=== PATIENT | female | born 1945 | race Caucasian/White ===

== ENCOUNTER → 2016-06-19 | Outpatient (CLI) | payer MEDICARE, BC ==
--- NOTE | 2016-06-20 08:51 | RADRPT ---
PROCEDURE: XR right knee. CLINICAL INDICATION: Knee pain TECHNIQUE: AP weightbearing, PA weightbearing, lateral weightbearing and sunrise views are availab le for review. COMPARISON: None available FINDINGS: There is moderate osteoarthrosis involving the patellofemoral compartment and mild osteoarthrosis in volving the medial tibial femoral compartment and the lateral tibial femoral compartment. This is as sociated with joint space narrowing, subchondral sclerosis and osteophytosis. There are small calcif ied loose bodies in the anterior and posterior joint. There is otherwise normal mineralization, architecture and alignment. No fractures are identified. No osseous lesions are identified. The soft tissues are unremarkable. IMPRESSION: Moderate osteoarthrosis involving the patellofemoral compartment and mild osteoarthrosis involving t he lateral tibial femoral compartment and the medial tibial femoral compartment. Small calcified loose bodies in the anterior and posterior joint. RPTAT: HGDB .David Arzate MD, MD Date Time Electronically viewed and signed by .David Arzate MD, on 06/20/2016 08:51 .B/
== END | disposition home or self-care (01) ==
LOC: HKI 10:23
PROVIDERS: ATTEND Orthopaedic Surgery
DX: M17.11 Unilateral primary osteoarthritis, right knee (principal)
CPT/HCPCS: 73564; G0463

== ENCOUNTER → 2016-09-18 | Outpatient (CLI) | payer BC, MEDICARE ==
--- NOTE | 2016-09-18 14:01 | RADRPT ---
PROCEDURE: Limited x-ray of both lower extremities. CLINICAL INDICATION: Bilateral leg pain. TECHNIQUE: Single frontal view of both lower extremities was obtained from the hips to the calves. COMPARISON: None. FINDINGS: The hips are grossly normal. There are moderate degenerative changes of both knees with osteophytes and joint space narrowing, right worse than left. There is bilateral valgus deformity with right w orse than left. IMPRESSION: 1. Moderate degenerative changes of the knees, right worse than left. 2. Bilateral valgus deformity with right worse than left. RPTAT: QQ .Pablo Foley MD, MD Date Time Electronically viewed and signed by .Pablo Foley MD, on 09/18/2016 14:00 .R/
== END | disposition home or self-care (01) ==
LOC: HKI 09:57
PROVIDERS: ATTEND Orthopaedic Surgery
DX: Z01.818 Encounter for other preprocedural examination (principal); M17.11 Unilateral primary osteoarthritis, right knee; M21.062 Valgus deformity, not elsewhere classified, left knee; M21.061 Valgus deformity, not elsewhere classified, right knee; M79.605 Pain in left leg; M79.604 Pain in right leg
CPT/HCPCS: 77073; G0463

== ENCOUNTER 2016-09-26 07:39 | Inpatient (IN) | payer BC, MEDICARE ==
[~2016-09-26] VITALS: Ht 172.7 cm; Wt 80.3 kg
[2016-09-26] VITALS (12 sets, daily range): BP systolic 108–138; BP diastolic 54–70; PULSE 59–75; RESP 16–20; Ht 172.7 cm; Wt 80.3 kg
[~2016-09-26 07:39] MED LIST: BUPIVACAINE LIPOSOME/PF 266 MG/20 ML VIAL INFIL ONE; CEFAZOLIN 2GM/50 ML (PMX) 50 ML X1 BEFORE INCISION IVPB ONE; CELECOXIB 400 MG PO X1 DOSE PO ONE; LACTATED RINGER'S 1,000 ML IV SCH; PAIN COCKTAIL-CEFUROXIME IRR ONE; PREGABALIN 300 MG PO X1 PO ONE; TRANEXAMIC ACID 810 MG in SOD CHLORIDE 0.9% 100 ML IVPB ONE; TRANEXAMIC ACID 810 MG in SOD CHLORIDE 0.9% 91.9 ML IV ONE; oxyCODONE (CR) 10 MG TAB [oxyCONTIN] X1 DOSE PO ONE; traMADOL 50 MG TAB X 1 DOSE PO ONE
[2016-09-26] MEDS ORDERED: GLYCOPYRROLATE 0.4 MG INJ ONE (08:10)
[2016-09-26] MEDS ORDERED: MIDAZOLAM 1 MG/ML 2 ML INJ ONE (08:10)
[2016-09-26] MEDS ORDERED: NEOSTIGMINE 3 MG/3 ML SYRINGE ONE (08:10)
[2016-09-26] MEDS ORDERED: CEFAZOLIN 1 GM INJ ONE (08:10)
[2016-09-26] MEDS ORDERED: PROPOFOL 20 ML ONE (08:10)
[2016-09-26] MEDS ORDERED: ROCURONIUM 50 MG INJ ONE (08:10)
[2016-09-26] MEDS ORDERED: FENTAnyl 50 MCG/ML VIAL ONE (08:11)
[2016-09-26] MEDS ORDERED: ONDANSETRON 4 MG INJ ONE (08:11)
[2016-09-26] MEDS ORDERED: DEXAMETHASONE 4 MG/ML 1 ML INJ ONE (08:11)
[2016-09-26] MEDS ORDERED: ATOR20TA38 PO (08:14)
[2016-09-26] MEDS ORDERED: VALS160T20 PO (08:14)
[2016-09-26] MEDS ORDERED: ATEN1TAB3 PO (08:15)
--- NOTE | 2016-09-26 09:50 | HPN ---
Date/Time of Note Date/Time of Note DATE: 09/26/16 TIME: 09:50 Interval H&P Admission Note Pt. seen H&P reviewed: No system changes No changes from H&P on 09/24/16 by CINDY Mathis MD September 26, 2016 09:50
[2016-09-26] MEDS ORDERED: POLYMYXIN B 500000 UNIT INJ ONE ×2 (10:11→10:20)
[2016-09-26] MEDS ORDERED: VANCOMYCIN 1 GM INJ ONE (10:11)
[2016-09-26] MEDS ORDERED: EXPAREL NOTE (BUPIVICAINE LIPOSOMAL) XX SCH (10:30)
[2016-09-26] MEDS ORDERED: BACITRACIN 50000 UNITS INJ IRR ONE (11:28)
[2016-09-26] MEDS ORDERED: MIDAZOLAM 1 MG/ML 2 ML INJ IV PRN ×2 (11:30)
[2016-09-26] MEDS ORDERED: MEPERIDINE 25 MG INJ IV PRN ×2 (11:30)
[2016-09-26] MEDS ORDERED: ONDANSETRON 4 MG INJ IV PRN ×3 (11:30→13:00)
[2016-09-26] MEDS ORDERED: HYDROmorphONE (0.2 MG/ML) 10ML SYG IV PRN ×5 (11:30)
[2016-09-26] MEDS ORDERED: LABETALOL HCL 20MG INJ IV PRN ×2 (11:30)
[2016-09-26] MEDS ORDERED: hydrALAzine 20 MG INJ IV PRN ×2 (11:30)
[2016-09-26] MEDS ORDERED: DIPHENHYDRAMINE 50 MG INJ IV PRN ×2 (11:30)
[2016-09-26] MEDS ORDERED: TRIMETHOBENZAMIDE 100 MG/ML VIAL IM PRN ×2 (11:30)
[2016-09-26] MEDS ORDERED: EPHEDrine SULFATE 50 MG/5 ML SYG IV PRN ×2 (11:30)
[2016-09-26] MEDS ORDERED: FENTAnyl 50 MCG/ML VIAL IV PRN ×6 (11:30)
[2016-09-26] MEDS: LACTATED RINGER'S 1,000 ML IV SCH ×2 (12:54→20:54)
[2016-09-26] MEDS ORDERED: NA PHOSPHATE/BIPHOS 133 ML ENEMA PR PRN (13:00)
[2016-09-26] MEDS ORDERED: DIPHENHYDRAMINE 25 MG CAP PO PRN (13:00)
[2016-09-26] MEDS ORDERED: HYDROmorphONE 1 MG/ML SYG IV PRN (13:00)
[2016-09-26] MEDS ORDERED: MAGNESIUM HYDROXIDE 30ML CUP PO PRN (13:00)
[2016-09-26] MEDS ORDERED: NACL 0.9% 3 ML SYG IV SCH (13:00)
[2016-09-26] MEDS ORDERED: ASPIRIN (EC) 325 MG TAB PO ONE (13:00)
[2016-09-26] MEDS ORDERED: BISACODYL 10 MG SUPP PR PRN (13:00)
[2016-09-26] MEDS ORDERED: HYDROCODONE/APAP (5/325) TAB PO PRN (13:00)
--- NOTE | 2016-09-26 13:01 | PN ---
Date/Time of Note Date/Time of Note DATE: 09/26/16 TIME: 12:59 Assessment/Plan Lines/Catheters IV Catheter Type (from Nrsg): Peripheral IV Assessment/Plan Assessment/Plan Stable in PACU, s/p right TKA -continue Ancef until drains removed -pain meds as needed -ASA/SCDs for DVT prophylaxis -OOB with PT -check AM labs -monitor drain -d/c bird in AM XR of the right knee is pending at this time Subjective 24 Hr Interval Summary Stable in PACU. Denies pain. Moving all extremities. Exam/Review of Systems Vital Signs Vitals Vital Signs Date Time Temp Pulse Resp B/P Pulse Ox O2 Delivery O2 Flow Rate FiO2 09/26/16 07:50 98.0 61 16 128/69 99 Room Air Exam Free Text/Dictation Hemovac: minimal Dressing dry Incision clean, dry, and intact without redness or drainage Thigh soft 5/5 Quadriceps, Tibialis Anterior, EHL, Gastroc, Soleus, Peroneals Normal sensation Palpable DT/PT, CR <2 sec No distal edema JANETTE AUGUSTIN PA-C September 26, 2016 13:01
--- NOTE | 2016-09-26 13:09 | OPR ---
Date/Time of Note Date/Time of Note DATE: 09/26/16 TIME: 13:08 Operative Report Free Text/Dictation Dictation # [id number] Procedure Date: September 26, 2016 Preoperative Diagnosis Right Knee OA Postoperative Diagnosis Same Operation Performed Right TKA Surgeon: CINDY WILLIS MD catalog library assistant: JANETTE AUGUSTIN PA-C Anesthesia: general, spinal Anesthesiologist: Giovani Cutler M.D. Tourniquet Time: 64 minutes Estimated Blood Loss: 50 - 100 ml's Specimens Bone and soft tissue Tubes/Drains Hemovac x 1 Complications: None Pt Condition Post Procedure: stable Disposition: PACU CINDY WILLIS MD September 26, 2016 13:09
[2016-09-26] MEDS: CEFAZOLIN 2 GM/50 ML (PMX) 50 ML IVPB SCH ×2 (13:24→21:27)
[2016-09-26 13:29] LABS: HEMATOCRIT 33.7 % (37.0-47.0); HEMOGLOBIN 12.2 g/dl (12.0-16.0)
[2016-09-26] MEDS: HYDROmorphONE (0.2 MG/ML) 10ML SYG IV PRN ×2 (13:47→13:52)
[2016-09-26 13:51] LABS: CALCIUM 9.3 mg/dl (8.4-10.2); CREATININE 0.69 mg/dl (0.44-1.00); POTASSIUM 3.6 mmol/L (3.5-5.1)
[2016-09-26] MEDS: ATENOLOL 25 MG TAB PO SCH ×2 (14:00→21:00)
[2016-09-26] MEDS ORDERED: BACITRACIN 50000 UNITS INJ ONE (14:26)
--- NOTE | 2016-09-26 14:35 | RADRPT ---
PROCEDURE: Right knee x-ray CLINICAL INDICATION: Status post total right knee arthroplasty. TECHNIQUE: AP, lateral and oblique views of the knee were obtained. COMPARISON: Right knee 06/19/2069 11:48 a.m. FINDINGS: There are skin clayton with subcutaneous emphysema over the ventral aspect of the right knee. There is a postsurgical drain in the suprapatellar area. The components of the prosthesis are anatomical ly aligned. IMPRESSION: 1. Status post total right knee arthroplasty with postsurgical changes. 2. The drainage catheter is identified projecting just dorsal to the patella. RPTAT:AAJJ Physician Jennifer Date Time Electronically viewed and signed by Abdiel Fuentes Physician on 09/26/2016 14:35 ENRRIQUE/
[2016-09-26] MEDS ORDERED: TRANEXAMIC ACID 800 MG in SOD CHLORIDE 0.9% 100 ML IVPB ONE ×2 (16:00→19:00)
[2016-09-26] MEDS: traMADol 50 MG TAB PO SCH ×2 (17:42→23:39)
[2016-09-26] MEDS: PANTOPRAZOLE (EC) 40 MG TAB PO SCH (17:42)
--- NOTE | 2016-09-26 19:00 | OPR ---
DATE OF OPERATION: 09/26/2016 PREOPERATIVE DIAGNOSIS: Right knee osteoarthritis. POSTOPERATIVE DIAGNOSIS: Right knee osteoarthritis. PROCEDURE PERFORMED: Right total knee arthroplasty. SURGEON: Cindy Walters MD SENIOR RESIDENT CARE DIRECTOR: NIMA Pathak COMPONENTS USED: DePuy Attune size 5 femoral component, size 4 tibial baseplate, 5 mm polyethylene insert, 35 patellar button. ANESTHESIA: Spinal plus general endotracheal intubation, plus periarticular injection. ANESTHESIOLOGIST: Giovani Cutler MD TOURNIQUET TIME: 64 minutes. ESTIMATED BLOOD LOSS: 50 mL. INTRAVENOUS FLUIDS: 2 liters of crystalloid. SPECIMENS: Bone and soft tissue. DRAINS: Hemovac x1. COMPLICATIONS: None. DISPOSITION: The patient tolerated the procedure well and was taken to the recovery room in stable condition. INDICATIONS: The patient is 71-year-old woman who has had progressive worsening pain in the right kn ee with radiographic evidence of severe osteoarthritis. She has failed nonsurgical means of treatme nt to control her pain including activity modifications, pain medications, intra-articular injection s and ambulatory assist devices. Despite these measures, she has had worsening pain, and I felt she would benefit from a total knee arthroplasty. The risks, benefits, and alternatives of the procedure were explained in detail to the patient. I e xplained the risks of the surgery to include but not be limited to, bleeding and possible need for b lood transfusion; infection; pain; stiffness; neurovascular injury with possible numbness, weakness, and/or paralysis anywhere from the knee down to the toes; fracture; instability; dislocation; wear and/or loosening of the prosthesis and possible need for future revision; blood clots; pulmonary emb olism; and anesthetic complications such as heart attack, stroke, GI bleed, pneumonia, and/or . Ample time was allowed for the patient to ask questions, all of which were addressed and answered. The patient understood the risks involved and wished to proceed. Informed consent was signed prior to the procedure. PROCEDURE: The patient's right knee was initialed with a marking pen in the preoperative area to id entify the correct operative site. The patient was brought to the operating room and transferred [facility] the [facility] to the operating table where a spinal anesthetic was administered. Sander sun nt was then anesthetized and intubated. A Ybarra catheter was placed. A timeout was performed to co nfirm that the right leg was the correct operative site. The patient was given 2 g of Ancef within one hour prior to the procedure. A tourniquet was placed on the operative proximal thigh. The oper ative knee and lower extremity were prepped and draped in the usual sterile fashion. The operative lower extremity was elevated and exsanguinated with an Esmarch tourniquet. The proximal thigh tourn iquet was inflated to 300 mmHg. The knee was flexed. A midline incision was made and carried down through the subcutaneous tissue a nd fat with sharp dissection. Limited medial and lateral flaps were raised. A median parapatellar arthrotomy approach was performed. Synovial fluid was normal in color and consistency. The patella was everted and the knee flexed. There were severe tricompartmental osteoarthritic changes noted. A lateral release was performed using the inverted crucifix technique. The ACL and PCL and remnants of the menisci were excised. The stepped drill was used to open up the femoral canal which was irri gated and sucked dry. The intramedullary guide damaris was passed up the femur, and the distal cutting block was pinned into place for a 5 degree valgus cut, taking 10 mm of bone off distally. The oscill ating saw was used to make the cut. The tibia was subluxed anteriorly. The tibial cutoff jig was placed over the center of the talus d istally and over the junction of the medial and middle third of the tibial tubercle proximally. The guide was pinned into place and the oscillating saw was used to make the cut. The tibia was sized. The extension gap was checked and accommodated the 5 mm spacer block with the knee in full extensio n. There was no varus or valgus instability. At this point, the femur was sized with the posterior referencing guide. Two holes were drilled in 3 degrees of external rotation. The two holes were in line with the transepicondylar axis, perpendi cular to Adan's line, and in line with the tibial cutoff jig brought up with the knee flexed 90 degrees and tensed with 2 lamina spreaders, suggesting the femoral rotation was correct. The four- in-one cutting block was pinned into place. The anterior and posterior cuts and chamfer cuts were m thomas with the oscillating saw. The flexion gap was checked and accommodated the 5 mm spacer block at 90 degrees. There was no varus or valgus instability, suggesting the flexion and extension gaps we re now equal. The central box was cut out on the femur. The tibia was drilled and punched in proper rotation. Tri al components were placed into position with a trial insert. The patella was cut from 21 mm down to 13 mm and sized. Three holes were drilled and the trial button placed in position. With all the t rials now in place, the knee was taken through range of motion and came to full extension as evidenc ed by the fact that with the foot on my abdomen and axial loading, there was no tendency for the kne e to flex. The knee was able to be flexed to 125 degrees with good patellar tracking with no latera l tilt or subluxation. At this point, I was satisfied with the overall range of motion, stability, and patellar tracking. The trials were removed. The real components were opened. Two bags of cement were mixed, one with and one without premixed antibiotic. The knee was irrigated with antibiotic saline and sucked dry. Once the cement was in a doughy stage, the real components were cemented into place. The knee was held in full extension, and the patellar component was held with a patellar clamp. All excess cemen t was removed with curettes. As the cement was hardening, the synovial/capsular layer was infiltrat ed with a mixture of 150 mg of 0.5% bupivacaine, 8 mg of Duramorph, 300 mcg of epinephrine, 30 mg of Toradol, 100 mcg of clonidine, 750 mg of cefuroxime and 86 mL of normal saline, followed by an inje ction of 266 mg of liposomal bupivacaine. A Hemovac drain was placed in the deep portion of the wound and brought out the anterolateral thigh. Once the cement was completely hardened, the trial liner was removed, and the real insert was open ed. The tourniquet was let down, and there was good hemostasis. The knee was then irrigated with a mixture of Betadine/saline and then antibiotic saline with pulsatile lavage. The real insert was impacted into the tibia and reduced onto to the femur. The arthrotomy was closed with a few interrupted #1 Ethibond in a [id number] fashion, and then closed in a watertight fashion with a running #2 Stratafix suture. Knee flexion was checked against gravity and came to 125 degrees. The subcutaneous layer was irrigated and closed with 2-0 Stratafi x, and then 3-0 Vicryl and then clayton on the skin. The wound was covered with an occlusive dressi ng, and secured with cast padding and a bias dressing. The drain was secured with 3-0 nylon. The sponge and needle counts were correct at the end of the case. The patient was then awakened, ex tubated, and taken to the recovery room in stable condition. Dictated By: CINDY DEL VALLE/NTS Conf#: [id number] DID#: [id number]
--- NOTE | 2016-09-26 19:00 | CONS ---
DATE OF ADMISSION: 09/26/2016 DATE OF CONSULTATION: 09/26/2016 TYPE OF CONSULTATION: POSTOPERATIVE MEDICAL CONSULTATION Dear Dr. Walters: Thank you very much for allowing me to evaluate this 71-year-old female who just underwent right kne e replacement. HISTORICAL EVENTS: As you well know, this patient has had progressive disabling pain involving her right knee and elected to proceed with surgery today. In recovery, she is comfortable with minimal right knee discomfort. Denies cough, wheezing, shortness of breath, nausea, vomiting, abdominal or chest pain. PAST MEDICAL HISTORY: Includes: 1. Hypertension. 2. Hyperlipidemia. 3. Osteoarthritis. 4. History of gastroesophageal reflux disease. 5. Postnasal drip. 6. Known cervical spine degenerative disease undergoing cervical neck fusion. 7. x1. 8. Tonsillectomy. MEDICATIONS 1. Diovan 160 b.i.d. 2. Lipitor 20 at bedtime. 3. Atenolol HCT 50/25 mg per day. 4. Protonix 40 mg per day. 5. Aspirin 81 mg per day. ALLERGIES: NONE. 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 Does not smoke, does not drink. FAMILY HISTORY: Positive for pneumonia, high blood pressure and diabetes. PHYSICAL EXAMINATION: GENERAL: [place] female in no acute distress. VITAL SIGNS: BP 122/80, pulse 70, respirations are 20, she was afebrile. EYES: Extraocular muscles were full. NOSE, MOUTH, AND THROAT: Normal. NECK: Supple. There was no jugular venous distention, thyroid enlargement or adenopathy. Carotids 2+, no bruits. LUNGS: Clear. HEART: Rhythm regular, no murmur. No third or fourth sound. ABDOMEN: Nontender. Liver and spleen were not palpable. No masses or tenderness were noted. EXTREMITIES: No edema. Calves nontender. Pulses 2+. NEUROLOGIC: No lateralizing motor weakness. IMPRESSION: 1. Status post right knee replacement. 2. History of hypertension. Will resume her usual blood pressure meds and monitor blood pressure throughout. 3. Will evaluate daily for signs and symptoms of thromboembolic disease despite appropriate thrombos is prophylaxis. 4. History of hyperlipidemia, statin to be continued. Dictated By: JAYY LEDESMA/NTS Conf#: [id number] DID#: [id number]
[2016-09-26] MEDS ORDERED: ATENOLOL PO SCH (21:00)
[2016-09-26] MEDS ORDERED: [UNRECOGNIZED DRUG - OTHER] PO SCH (21:00)
[2016-09-26] MEDS ORDERED: CHLORTHALIDONE E PO SCH (21:00)
[2016-09-26] MEDS: VALSARTAN 160 MG TAB PO SCH (21:00)
[2016-09-26] MEDS: DOCUSATE SODIUM 100 MG CAP PO SCH (21:27)
[2016-09-26] MEDS: ATORVASTATIN 20 MG TAB PO SCH (21:27)
[2016-09-26] MEDS: PREGABALIN 50 MG CAP PO SCH (21:32)
[2016-09-27 00:31] VITALS: BP 110/72; RESP 18
[2016-09-27] MEDS: LACTATED RINGER'S 1,000 ML IV SCH (04:12)
[2016-09-27] MEDS: CEFAZOLIN 2 GM/50 ML (PMX) 50 ML IVPB SCH (04:12)
[2016-09-27 05:12] LABS: HEMATOCRIT 30.8 % (37.0-47.0); HEMOGLOBIN 10.8 g/dl (12.0-16.0)
[2016-09-27 05:44] LABS: CALCIUM 8.8 mg/dl (8.4-10.2); CREATININE 0.71 mg/dl (0.44-1.00); POTASSIUM 4.1 mmol/L (3.5-5.1)
[2016-09-27] MEDS: traMADol 50 MG TAB PO SCH ×4 (06:10→23:53)
[2016-09-27] MEDS: PANTOPRAZOLE (EC) 40 MG TAB PO SCH ×2 (06:10→17:47)
[2016-09-27 06:38] LABS: ADD UMIC YES; URINE BILIRUBIN (Dip) NEGATIVE (NEGATIVE); URINE BLOOD (Dip) 1+ (NEGATIVE); URINE COLOR LT. YELLOW (YELLOW); URINE KETONES (Dip) NEGATIVE (NEGATIVE); URINE LEUKOCYTE ESTERASE (Dip) NEGATIVE (NEGATIVE); URINE NITRITE (Dip) NEGATIVE (NEGATIVE); URINE TOTAL PROTEIN (Dip) NEGATIVE (NEGATIVE); URINE UROBILINOGEN (Dip) 0.2 E.U./dL (0.1-1.0)
--- NOTE | 2016-09-27 07:23 | PREOPHP ---
DATE OF ADMISSION: 09/26/2016 TYPE OF CONSULTATION: Medical. REFERRING PHYSICIAN: Dr. Luis Willis. DICTATING PHYSICIAN: Dr. Donnie Garcia. Fax number: [phone]. INTRODUCTION: This is a 71-year-old female scheduled for a right total knee replacement by Dr. Sara carver. PAST MEDICAL HISTORY: Significant for: 1. History of hypertension. 2. Hyperlipidemia. 3. Osteoarthritis. 4. GERD. 5. Postnasal drip. 6. Cervical spine degenerative disease. PAST SURGICAL HISTORY: x1, tonsillectomy, bilateral and cervical fusion in 2013. MEDICATIONS: 1. Diovan 160 mg twice a day. 2. Lipitor 20 mg at bedtime. 3. Atenolol/HCT 50/25 mcg daily. 4. Protonix 40 mg daily p.r.n. 5. Aspirin 81 daily. ALLERGIES: PATIENT DOES NOT HAVE DRUG ALLERGIES. SOCIAL HISTORY: Negative history of drugs, tobacco, or alcohol abuse. She is . She has one child, in good health. 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 FAMILY HISTORY: Mother at the age of 79. She had pneumonia. Father at the age of 81, al so from pneumonia, had high blood pressure. The patient has 1 sister who has had diabetes, high blo od pressure. REVIEW OF SYSTEMS: GENERAL: Denies fever, chills, gaining or losing weight. Eyes: Negative for double blurry vision, eye pain. ENT: Negative for sore throat, ear pain, and the congestion. CARDIOVASCULAR: Negative for chest pain, PND, palpitation. RESPIRATORY: Negative for shortness of breath, cough, hemoptysis. GASTROINTESTINAL: Negative for nausea, vomiting, constipation, diarrhea, abdominal pain. GENITOURINARY: Negative for dysuria, frequency, nocturia. ENDOCRINOLOGY: Negative history of diabetes or thyroid dysfunction. HEMATOLOGY: Negative history of easy bruising or bleeding. NEUROLOGICAL: The patient denies any history of seizure, stroke, numbness, tingling, or weakness. PHYSICAL EXAMINATION: GENERAL: Well developed, obese female, not in acute distress. VITAL SIGNS: Temperature 97.1, heart rate 67, respiratory rate 16, blood pressure 120/80. HEENT: Atraumatic, normocephalic. SKIN: No rash, no lesion, no bruises, no hematomas. NECK: Supple, no lymphadenopathy, no thyromegaly. Negative for jugular vein distention. Negative for carotid bruits. HEENT: Pupils equal, round, reactive to light and accommodation. Extraocular movements intact. No peripheral edema. Ears: Normal tympanic membranes bilaterally. Nose: Clear. Throat: No erythe ma. No exudate. HEART: Regular rate and rhythm. Normal S1, normal S2. No S3, no S4, no murmur, no gallops. LUNGS: Clear to auscultation bilaterally. No rales, no wheezes. ABDOMEN: Soft, nontender, nondistended. Positive for bowel sounds. Negative for hepatosplenomegal y. EXTREMITIES: No cyanosis, clubbing, edema. NEUROLOGICAL: The patient alert and oriented x3. Cranial nerves II through XII grossly intact. No motor or sensory deficit. Deep tendon reflexes 2+ bilaterally. LABORATORY DATA: Showed a sodium of 134, potassium 4.0, chloride 93, bicarb 31, BUN 18, creatinine 0.8, blood sugar 102. AST 30, ALT 18, alkaline phosphatase 75, total bilirubin 0.9. WBC count 6.3, hemoglobin 14.4, hematocrit 41.2, platelets 254. PT 11.5, PTT 26.8, INR 1.08. Urinalysis negative for WBC, negative for RBC. EKG showed sinus rhythm, heart rate of 60, no acute ST changes. Chest x-ray: No cardiomegaly, no infiltrates. IMPRESSION: A 71-year-old female with: 1. Right knee osteoarthritis, scheduled for right total arthroplasty. 2. History of hypertension. 3. History of hyperlipidemia. 4. History of gastroesophageal reflux disease. 5. History of postnasal drip. 6. History of cervical spine degenerative disk disease. RECOMMENDATIONS: According to [employer], patient possesses low to medium risk of perioperative cardiovascular complication. Patient was advised not to take aspirin, any nonsteroid al anti-inflammatory medication 7 days prior to the surgery. At this time, patient will be medicall y cleared for upcoming surgery. Dr. Donnie Garcia dictated Pre-Operative History and Physicial for Dr. Luis Willis MD. Dictated By: LUIS DEL VALLE/NTS Conf#: [id number] DID#: [id number] CC: LUIS WILLIS MD;*[facility]*
[2016-09-27 07:24] VITALS: BP 128/57; RESP 19
--- NOTE | 2016-09-27 08:28 | CONS ---
Date/Time of Note Date/Time of Note DATE: 09/27/16 TIME: 08:26 Assessment/Plan Assessment/Plan Additional Assessment/Plan 1. Status post right knee replacement. 2. History of hypertension, controlled 3. History of hyperlipidemia on statin Consultation Date/Type/Reason Admit Date/Time September 26, 2016 at 07:39 Initial Consult Date Detailed Summary Respiratory: No cough, No shortness of breath Cardiovascular: No chest pain Gastrointestinal: no complaints Genitourinary: no complaints Musculoskeletal: bone/joint pain (mild right knee pain) Exam/Review of Systems Vital Signs Vitals Vital Signs Date Time Temp Pulse Resp B/P Pulse Ox O2 Delivery O2 Flow Rate FiO2 09/27/16 07:24 98.0 62 19 128/57 98 09/26/16 20:00 Nasal Cannula 2.0 Intake and Output 09/26/16 09/26/16 09/27/16 15:00 23:00 07:00 Intake Total 2500 ml 508 ml 3010 ml Output Total 810 ml 670 ml 3200 ml Balance 1690 ml -162 ml -190 ml Exam Neck: No jvd Respiratory: clear to auscultation Cardiovascular: regular rate and rhythm Gastrointestinal: soft Extremities: No edema (and no calf tend) Results Result Diagram: 09/27/16 0415 09/27/16 0415 Results 24 hrs Laboratory Tests Test 09/26/16 13:15 09/27/16 04:15 09/27/16 04:40 Hemoglobin 12.2 10.8 L Hematocrit 33.7 L 30.8 L Sodium Level 136 132 L Potassium Level 3.6 4.1 Chloride Level 101 97 Carbon Dioxide Level 29 29 Anion Gap 10 10 Blood Urea Nitrogen 12 14 Creatinine 0.69 0.71 Glucose Level 176 122 # Calcium Level 9.3 8.8 Urine Color LT. YELLOW Urine Clarity CLEAR Urine pH 5.5 Urine Specific [place] 1.010 Urine Ketones NEGATIVE Urine Nitrite NEGATIVE Urine Bilirubin NEGATIVE Urine Urobilinogen 0.2 E.U./dL Urine Leukocyte Esterase NEGATIVE Urine Microscopic RBC 2-5 Urine Microscopic WBC 0-2 Urine Epithelial Cells RARE Urine Hemoglobin 1+ H Urine Glucose 0.25% H Urine Total Protein NEGATIVE Medications Medications Current Medications Atorvastatin Calcium (Lipitor) 20 mg QHS PO Last administered on 09/26/16t 21: 27; Admin Dose 20 MG; Start 09/26/16 at 21:00 Valsartan 160 mg 160 mg BID PO ; Start 09/26/16 at 21:00 Lactated Ringer's (Lr) 1,000 ml @ 125 mls/hr Q8H IV Last administered on 04:12; Admin Dose 125 MLS/HR; Start 09/26/16 at 12:54 Celecoxib (Celebrex) 200 mg DAILY PO ; Start 09/27/16 at 09:00 Tramadol HCl (Ultram) 50 mg Q6 PO Last administered on 09/27/16 06:10; Admin Dose 50 MG; Start 09/26/16 at 18:00; Stop 09/29/16 at 17:59 Acetaminophen/ Hydrocodone Bitart ([place] (5/325)) 1 tab Q4H PRN PO PAIN LEVEL 1 -3; Start 09/26/16 at 13:00 Acetaminophen/ Hydrocodone Bitart ([place] (5/325)) 2 tab Q4H PRN PO PAIN LEVEL 4 -7; Start 09/26/16 at 13:00 Hydromorphone HCl (Dilaudid) 1 mg Q3H PRN IV PAIN LEVEL 8-10; Start 09/26/16 at 13:00 Ondansetron HCl (Zofran Inj) 4 mg Q6H PRN IV NAUSEA AND/OR VOMITING; Start at 13:00 Bisacodyl (Dulcolax Supp) 10 mg Q12H PRN [place] CONSTIPATION; Start 09/26/16 at 13: 00 Magnesium Hydroxide (Milk Of Mag) 30 ml BID PRN PO CONSTIPATION; Start at 13:00 Sodium Biphosphate/ Sodium Phosphate (Fleet Enema) 133 ml DAILY PRN [place] CONSTIPATION; Start 09/26/16 at 13:00 Docusate Sodium (Colace) 100 mg BID PO Last administered on 09/26/16 21:27; Admin Dose 100 MG; Start 09/26/16 at 21:00 Diphenhydramine HCl (Benadryl) 25 mg Q6H PRN PO PRURITUS; Start 09/26/16 at 13: 00 Aspirin (Ecotrin) 325 mg BID PO ; Start 09/27/16 at 09:00 Pantoprazole (Protonix Tab) 40 mg BID@06,18 PO Last administered on 09/27/16 06:10; Admin Dose 40 MG; Start 09/26/16 at 18:00 Pregabalin (Lyrica) 50 mg BID PO Last administered on 09/26/16t 21:32; Admin Dose 50 MG; Start 09/26/16 at 21:00 Atenolol (Tenormin) 25 mg BID PO ; Start 09/26/16 at 14:00 JAYY CRAIN MD September 27, 2016 08:28
[2016-09-27] MEDS: CELECOXIB 200 MG CAP PO SCH (08:39)
[2016-09-27] MEDS: HYDROCODONE/APAP (5/325) TAB PO PRN ×2 (08:39→20:40)
[2016-09-27] MEDS: DOCUSATE SODIUM 100 MG CAP PO SCH ×2 (08:39→20:39)
[2016-09-27] MEDS: PREGABALIN 50 MG CAP PO SCH ×2 (08:39→20:39)
[2016-09-27] MEDS: ATENOLOL 25 MG TAB PO SCH ×2 (08:40→20:39)
[2016-09-27] MEDS: ASPIRIN (EC) 325 MG TAB PO SCH ×2 (08:40→20:39)
[2016-09-27] MEDS: VALSARTAN 160 MG TAB PO SCH ×2 (08:40→21:00)
[2016-09-27] MEDS: SOD CHLORIDE 0.9% 1,000 ML IV SCH ×2 (08:42→20:43)
--- NOTE | 2016-09-27 08:43 | PN ---
Date/Time of Note Date/Time of Note DATE: 09/27/16 TIME: 08:41 Assessment/Plan Lines/Catheters IV Catheter Type (from Nrsg): Peripheral IV Ybarra in Place (from Nrsg): Yes Assessment/Plan Assessment/Plan Stable POD #1, s/p right TKA -d/c Ancef -pain meds as needed -ASA/SCDs for DVT prophylaxis -OOB with PT -drain removed -check AM labs -d/c planning. Will plan to go home upon discharge Subjective 24 Hr Interval Summary No acute overnight events. Denies significant pain. Walked with PT yesterday. VSS, afebrile. Will plan to go home upon discharge. Exam/Review of Systems Vital Signs Vitals Vital Signs Date Time Temp Pulse Resp B/P Pulse Ox O2 Delivery O2 Flow Rate FiO2 09/27/16 07:24 98.0 62 19 128/57 98 09/26/16 20:00 Nasal Cannula 2.0 Intake and Output 09/26/16 09/26/16 09/27/16 15:00 23:00 07:00 Intake Total 2500 ml 508 ml 3010 ml Output Total 810 ml 670 ml 3200 ml Balance 1690 ml -162 ml -190 ml Exam Free Text/Dictation Hemovac: 230cc Dressing dry Incision clean, dry, and intact without redness or drainage Thigh soft 5/5 Quadriceps, Tibialis Anterior, EHL, Gastroc, Soleus, Peroneals Normal sensation Palpable DT/PT, CR <2 sec No distal edema Results Result Diagram: 09/27/16 0415 09/27/16 0415 JANETTE AUGUSTIN PA-C September 27, 2016 08:43
[2016-09-27 10:20] LABS: ADD UMIC YES; URINE BILIRUBIN (Dip) NEGATIVE (NEGATIVE); URINE BLOOD (Dip) NEGATIVE (NEGATIVE); URINE COLOR LT. YELLOW (YELLOW); URINE GLUCOSE (Dip) NEGATIVE (NEGATIVE); URINE KETONES (Dip) NEGATIVE (NEGATIVE); URINE LEUKOCYTE ESTERASE (Dip) TRACE (NEGATIVE); URINE NITRITE (Dip) NEGATIVE (NEGATIVE); URINE TOTAL PROTEIN (Dip) NEGATIVE (NEGATIVE); URINE UROBILINOGEN (Dip) 0.2 E.U./dL (0.1-1.0)
[2016-09-27 10:33] LABS: MUCUS,URINE FEW; URINE RBCS NONE SEEN /HPF (0)
[2016-09-27 19:00] VITALS: BP 109/55; RESP 18
[2016-09-27] MEDS: ATORVASTATIN 20 MG TAB PO SCH (20:40)
[2016-09-28 05:18] LABS: HEMOGLOBIN 10.4 g/dl (12.0-16.0)
[2016-09-28 05:49] LABS: CALCIUM 8.6 mg/dl (8.4-10.2); CREATININE 0.73 mg/dl (0.44-1.00); POTASSIUM 4.6 mmol/L (3.5-5.1)
[2016-09-28] MEDS: traMADol 50 MG TAB PO SCH ×2 (05:51→12:58)
[2016-09-28] MEDS: PANTOPRAZOLE (EC) 40 MG TAB PO SCH (05:51)
[2016-09-28] MEDS: HYDROCODONE/APAP (5/325) TAB PO PRN ×2 (06:54→13:01)
[2016-09-28 08:26] VITALS: BP 127/63; RESP 18
[2016-09-28] MEDS: VALSARTAN 160 MG TAB PO SCH (09:00)
[2016-09-28] MEDS: DOCUSATE SODIUM 100 MG CAP PO SCH (09:15)
[2016-09-28] MEDS: CELECOXIB 200 MG CAP PO SCH (09:16)
[2016-09-28] MEDS: ASPIRIN (EC) 325 MG TAB PO SCH (09:16)
[2016-09-28] MEDS: PREGABALIN 50 MG CAP PO SCH (09:16)
[2016-09-28] MEDS: ATENOLOL 25 MG TAB PO SCH (09:16)
[2016-09-28] MEDS: SOD CHLORIDE 0.9% 1,000 ML IV SCH (09:30)
--- NOTE | 2016-09-28 10:54 | PDOCDIS ---
Discharge Instructions DIAGNOSIS Discharge Diagnosis: s/p right TKA CONDITION Patient Condition: Good HOME CARE INSTRUCTIONS: Diet Instructions: Regular ACTIVITY: Activity Restrictions: Slowly Increase Activity Rest between Activity Avoid heavy lifting Do not operate Machinery Do not operate Power Tool Avoid Heavy Housework Keep Limb Elevated Bathing Restrictions: Shower FOLLOW UP/APPOINTMENTS Appointments follow up in the office on 10/06/16 JANETTE AUGUSTIN PA-C September 28, 2016 10:54
[2016-09-28] MEDS ORDERED: TRAM50TA2 PO (10:56)
[2016-09-28] MEDS ORDERED: ASPI325T32 PO (10:56)
[2016-09-28] MEDS ORDERED: HYDR-905 PO (10:56)
[2016-09-28] MEDS ORDERED: PANT40TA4 PO (10:56)
[2016-09-28] MEDS ORDERED: PREG50CA PO (10:56)
--- NOTE | 2016-09-28 11:04 | PN ---
Date/Time of Note Date/Time of Note DATE: 09/28/16 TIME: 11:03 Assessment/Plan Lines/Catheters IV Catheter Type (from Nrsg): Peripheral IV Ybarra in Place (from Nrsg): Yes Assessment/Plan Assessment/Plan Stable POD #2, s/p right TKA -pain meds as needed -ASA/SCDs for DVT prophylaxis -OOB with PT -dressing changed -discharge home today -follow up in the office on 10/06/16 Subjective 24 Hr Interval Summary No acute overnight events. Having mild pain but controlled with [place]. Progressing with PT. VSS, afebrile. Would like to go home today. Exam/Review of Systems Vital Signs Vitals Vital Signs Date Time Temp Pulse Resp B/P Pulse Ox O2 Delivery O2 Flow Rate FiO2 09/28/16 08:26 97.5 127 18 127/63 95 09/26/16 20:00 Nasal Cannula 2.0 Intake and Output 09/27/16 09/27/16 09/28/16 14:59 22:59 06:59 Intake Total 1580 ml 1100 ml Output Total 500 ml 3 ml Balance 1080 ml 1097 ml Exam Free Text/Dictation Dressing dry Incision clean, dry, and intact without redness or drainage Thigh soft 09/08 Quadriceps, Tibialis Anterior, EHL, Gastroc, Soleus, Peroneals Normal sensation Palpable DT/PT, CR <2 sec No distal edema Results Result Diagram: 09/28/16 0425 09/28/16 0446 JANETTE AUGUSTIN PA-C September 28, 2016 11:04
--- NOTE | 2016-09-28 11:08 | CONS ---
Date/Time of Note Date/Time of Note DATE: 09/28/16 TIME: 11:06 Assessment/Plan Assessment/Plan Additional Assessment/Plan 1. Status post right knee replacement, doimg very well. labs rev 2. History of hypertension, controlled 3. History of hyperlipidemia on statin 4. Can dc if ok with pt and ortho Consultation Date/Type/Reason Admit Date/Time September 26, 2016 at 07:39 Detailed Summary Respiratory: No pleuritic pain, No shortness of breath Cardiovascular: No chest pain Gastrointestinal: no complaints Genitourinary: no complaints Musculoskeletal: bone/joint pain (mild right knee pain) Exam/Review of Systems Vital Signs Vitals Vital Signs Date Time Temp Pulse Resp B/P Pulse Ox O2 Delivery O2 Flow Rate FiO2 09/28/16 08:26 97.5 127 18 127/63 95 09/26/16 20:00 Nasal Cannula 2.0 Intake and Output 09/27/16 09/27/16 09/28/16 15:00 23:00 07:00 Intake Total 1580 ml 1100 ml Output Total 500 ml 3 ml Balance 1080 ml 1097 ml Exam Neck: No jvd Respiratory: clear to auscultation Cardiovascular: regular rate and rhythm Gastrointestinal: soft Extremities: No edema (and no calf tend) Results Result Diagram: 09/28/16 0425 09/28/16 0446 Results 24 hrs Laboratory Tests Test 09/28/16 04:25 09/28/16 04:46 Hemoglobin 10.4 L Hematocrit 30.0 L Sodium Level 134 L Potassium Level 4.6 Chloride Level 99 Carbon Dioxide Level 32 H Anion Gap 8 Blood Urea Nitrogen 16 Creatinine 0.73 Glucose Level 97 Calcium Level 8.6 Medications Medications Current Medications Atorvastatin Calcium (Lipitor) 20 mg QHS PO Last administered on 09/27/16 20: 40; Admin Dose 20 MG; Start 09/26/16 at 21:00 Valsartan (Diovan) 160 mg BID PO Last administered on 09/27/16 08:40; Admin Dose 160 MG; Start 09/26/16 at 21:00 Celecoxib (Celebrex) 200 mg DAILY PO Last administered on 09/28/16 09:16; Admin Dose 200 MG; Start 09/27/16 at 09:00 Tramadol HCl (Ultram) 50 mg Q6 PO Last administered on 09/28/16 05:51; Admin Dose 50 MG; Start 09/26/16 at 18:00; Stop 09/29/16 at 17:59 Acetaminophen/ Hydrocodone Bitart ([place] (5/325)) 1 tab Q4H PRN PO PAIN LEVEL 1 -3 Last administered on 09/28/16 06:54; Admin Dose 1 TAB; Start 09/26/16 at 13: 00 Acetaminophen/ Hydrocodone Bitart ([place] (5/325)) 2 tab Q4H PRN PO PAIN LEVEL 4 -7; Start 09/26/16 at 13:00 Hydromorphone HCl (Dilaudid) 1 mg Q3H PRN IV PAIN LEVEL 8-10; Start 09/26/16 at 13:00 Ondansetron HCl (Zofran Inj) 4 mg Q6H PRN IV NAUSEA AND/OR VOMITING; Start at 13:00 Bisacodyl (Dulcolax Supp) 10 mg Q12H PRN [place] CONSTIPATION; Start 09/26/16 at 13: 00 Magnesium Hydroxide (Milk Of Mag) 30 ml BID PRN PO CONSTIPATION; Start at 13:00 Sodium Biphosphate/ Sodium Phosphate (Fleet Enema) 133 ml DAILY PRN [place] CONSTIPATION; Start 09/26/16 at 13:00 Docusate Sodium (Colace) 100 mg BID PO Last administered on 09/28/16 09:15; Admin Dose 100 MG; Start 09/26/16 at 21:00 Diphenhydramine HCl (Benadryl) 25 mg Q6H PRN PO PRURITUS; Start 09/26/16 at 13: 00 Aspirin (Ecotrin) 325 mg BID PO Last administered on 09/28/16 09:16; Admin Dose 325 MG; Start 09/27/16 at 09:00 Pantoprazole (Protonix Tab) 40 mg BID@18 PO Last administered on 09/28/16 05:51; Admin Dose 40 MG; Start 09/26/16 at 18:00 Pregabalin (Lyrica) 50 mg BID PO Last administered on 09/28/16 09:16; Admin Dose 50 MG; Start 09/26/16 at 21:00 Atenolol 25 mg 25 mg BID PO Last administered on 09/28/16 09:16; Admin Dose 25 MG; Start 09/26/16 at 14:00 Sodium Chloride (NS) 1,000 ml @ 80 mls/hr [id number] IV Last administered on 09/27t 20:43; Admin Dose 80 MLS/HR; Start 09/27/16 at 08:30 JAYY CRAIN MD September 28, 2016 11:08
--- NOTE | 2016-09-29 12:13 | DS ---
DATE OF ADMISSION: 09/26/2016 DATE OF DISCHARGE: 09/28/2016 CONDITION ON DISCHARGE: Stable. ADMITTING DIAGNOSIS: Right knee osteoarthritis. DISCHARGE DIAGNOSIS: Status post right total knee arthroplasty. PROCEDURE PERFORMED: Right total knee arthroplasty. HOSPITAL COURSE: This is a 71-year-old female who was seen in the clinic initially complaining of r ight knee pain. She had previously underwent conservative modalities unsuccessfully, and gait advan ce findings of osteoarthritis of her x-ray, it was thought she would benefit from a right total knee arthroplasty. On 09/26/2016. The patient was admitted and taken to the operating room where she u nderwent a right total knee arthroplasty. There were no intraoperative complications. The patient tolerated the procedure well. She was taken to the recovery room in stable condition. The pain was well controlled with oral pain medication. She was started on aspirin and SCDs for DVT prophylaxis . She remained hemodynamically stable and neurovascularly intact throughout her hospital stay. She began physical therapy in the hospital and was deemed stable for discharge on postoperative day 2. Prior to discharge, the incision was inspected and noted to be clean, dry, and intact. Dressing ch anges were done prior to the patient going home. LABORATORY ANALYSIS: Hemoglobin 10.4, hematocrit 30.0, chemistry panel was within normal limits. DISCHARGE MEDICATIONS: 1. [place] 7.5/325 mg. 2. Tramadol 50 mg. 3. Protonix 40 mg. 4. Lyrica 50 mg. 5. Aspirin 325 mg. Additionally, the patient should resume all of her normal home medications. DISCHARGE INSTRUCTIONS: The patient will be discharged home in stable condition. She is to resume a normal diet. She is weightbearing as tolerated on the right lower extremity. She will begin phys ical therapy with home health. She will be discharged home on the medications noted above and is to resume all of her normal home medications. The patient is to call the office or go to the emergenc y room for any concerns including increased redness, swelling, drainage, fever or any concerns regar ding the operation or site of incision. FOLLOWUP: She is to follow up in the office on 10/06/2016. Dictated By: JANETTE ELLIOTT/ILENE Conf#: [id number] DID#: [id number]
== END 2016-09-28 14:46 | disposition home health service (06) | DRG 470 ==
LOC: REC 07:39 → MS1 13:42
PROVIDERS: ADMIT Orthopaedic Surgery; ATTEND Orthopaedic Surgery
PROC: 0SRC0J9 Replacement of Right Knee Joint with Synthetic Substitute, Cemented, Open Approach (ICD-10-PCS; principal; 2016-09-26 10:00)
DX: M17.11 Unilateral primary osteoarthritis, right knee (principal); I10 Essential (primary) hypertension; E78.5 Hyperlipidemia, unspecified; K21.9 Gastro-esophageal reflux disease without esophagitis
CPT/HCPCS: 73560; 80048; 81001; 84300; 85014; 85018; 86850; 86900; 86901; 86920; 87081; 87086; 97110; 97116; 97162; 97530; C1776; C9290; J0171; J0690; J0697; J0735; J1100; J1170; J1885; J2175; J2250; J2274; J2405; J2710; J3010; J3370; J7030; J7120

== ENCOUNTER → 2016-10-06 | Outpatient (CLI) | payer BC, MEDICARE ==
[~2016-10-06] MED LIST changes: +ASPI325T32 PO; +ATEN1TAB3 PO; +ATOR20TA38 PO; -BUPIVACAINE LIPOSOME/PF 266 MG/20 ML VIAL INFIL ONE; -CEFAZOLIN 2GM/50 ML (PMX) 50 ML X1 BEFORE INCISION IVPB ONE; -CELECOXIB 400 MG PO X1 DOSE PO ONE; +HYDR-905 PO; -LACTATED RINGER'S 1,000 ML IV SCH; -PAIN COCKTAIL-CEFUROXIME IRR ONE; +PANT40TA4 PO; +PREG50CA PO; -PREGABALIN 300 MG PO X1 PO ONE; +TRAM50TA2 PO; -TRANEXAMIC ACID 810 MG in SOD CHLORIDE 0.9% 100 ML IVPB ONE; -TRANEXAMIC ACID 810 MG in SOD CHLORIDE 0.9% 91.9 ML IV ONE; +VALS160T20 PO; -oxyCODONE (CR) 10 MG TAB [oxyCONTIN] X1 DOSE PO ONE; -traMADOL 50 MG TAB X 1 DOSE PO ONE
--- NOTE | 2016-10-06 10:42 | RADRPT ---
PROCEDURE: XR right knee. CLINICAL INDICATION: Knee pain. TECHNIQUE: AP and lateral weightbearing are available for review. COMPARISON: No comparison available FINDINGS: There is a total knee replacement. There is no evidence of loosening of the prosthesis. There is no evidence of hardware failure. The osseous structures are normal in mineralization, architecture and alignment No acute fracture or dislocation is seen.No osseous lesions are identified. There is ante rior soft tissue swelling. There is a suprapatellar joint effusion. Anterior skin [place] are in p lace. IMPRESSION: Unremarkable total knee replacement. RPTAT: [facility] .David Arzate MD, MD Date Time Electronically viewed and signed by .David Arzate MD, on 10/06/2016 10:41 .B/
== END | disposition home or self-care (01) ==
LOC: HKI 09:34
PROVIDERS: ATTEND Orthopaedic Surgery
DX: Z47.1 Aftercare following joint replacement surgery (principal); M17.11 Unilateral primary osteoarthritis, right knee; Z96.651 Presence of right artificial knee joint

== ENCOUNTER → 2016-11-03 | Outpatient (CLI) | payer BC, MEDICARE | END | disposition home or self-care (01) | LOC: HKI 10:58 | PROVIDERS: ATTEND Orthopaedic Surgery | DX: Z47.1 Aftercare following joint replacement surgery (principal); Z96.651 Presence of right artificial knee joint; M17.11 Unilateral primary osteoarthritis, right knee ==

== ENCOUNTER → 2016-12-15 | Outpatient (CLI) | payer BC, MEDICARE ==
--- NOTE | 2016-12-15 16:10 | RADRPT ---
PROCEDURE: XR Knee 3 views. CLINICAL INDICATION: Right knee pain, knee replacement follow-up. TECHNIQUE: AP , sunrise and lateral view of the right knee were obtained. The images reviewed on a PACS workstation. COMPARISON: October 06, 2016 FINDINGS: Complete right knee replacement is identified. Prosthetic components are in appropriate position an d alignment. No fractures or destructive lesions are observed. Soft tissues are unremarkable. IMPRESSION: Status post right knee replacement. Prosthetic components are in appropriate position and alignment . RPTAT: AA .Rashad Blanchard MD, Date Time Electronically viewed and signed by .Rashad Blanchard MD, on 12/15/2016 16:10 .P/
== END | disposition home or self-care (01) ==
LOC: HKI 09:53
PROVIDERS: ATTEND Orthopaedic Surgery
DX: Z47.1 Aftercare following joint replacement surgery (principal); M17.11 Unilateral primary osteoarthritis, right knee; Z96.651 Presence of right artificial knee joint